=== PATIENT | female | born 1980 | race Caucasian/White ===

== ENCOUNTER 2018-04-12 09:03 | Day surgery (SDC) | payer OTHER ==
[2018-04-11 10:11] LABS: HEMATOCRIT 39.9 % (36.0-47.0); MEAN CORPUSCULAR HEMOGLOBIN 32.6 pg (27.0-33.4); MEAN CORPUSCULAR HGB CONC 35.1 g/dL (32.0-36.0); MEAN CORPUSCULAR VOLUME 93 fl (80-97); PLATELET COUNT 148 10^3/uL (150-450); RED BLOOD COUNT 4.28 10^6/uL (3.72-5.28); WHITE BLOOD COUNT 7.4 10^3/uL (4.0-10.5)
[2018-04-11 10:19] LABS: APPEARANCE,URINE SLIGHTLY-CLOUDY; BILIRUBIN,URINE NEGATIVE (NEGATIVE); COLOR,URINE YELLOW; GLUCOSE, URINE NEGATIVE (NEGATIVE); KETONES,URINE NEGATIVE (NEGATIVE); LEUKOCYTE ESTERASE,URINE TRACE (NEGATIVE); NITRITE,URINE NEGATIVE (NEGATIVE); PROTEIN,URINE NEGATIVE (NEGATIVE); URINE SPECIFIC GRAVITY 1.011; UROBILINOGEN,URINE NEGATIVE mg/dL (<2.0)
[~2018-04-12 09:03] MED LIST: ALBUTEROL SULFATE 0.083% NEB 2.5 MG/3 ML AMPUL NEB ONE; LACTATED RINGERS 1000 ML IV PRN; LIDOCAINE 0.5% INJ-PF (5 MG/ML) 50 ML SDV SUBCUT PRN
[2018-04-12] MEDS ORDERED: SCOPOLAMINE HYDROBROMIDE 1.5 MG PATCH.TD72 ONE (10:09)
[2018-04-12] MEDS ORDERED: FAMOTIDINE INJ/PF 20 MG/2 ML SDV IV ONE (10:09)
[2018-04-12] MEDS ORDERED: ALBUTEROL SULFATE 0.083% NEB 2.5 MG/3 ML AMPUL NEB ONE ×2 (10:21→12:19)
[2018-04-12] MEDS ORDERED: PROPOFOL INJ 200 MG/20 ML VIAL IV ONE (11:01)
[2018-04-12] MEDS ORDERED: FENTANYL CITRATE INJ/PF 100 MCG/2 ML AMPUL ONE (11:01)
[2018-04-12] MEDS ORDERED: MIDAZOLAM 2 MG/2 ML INJ ONE (11:01)
[2018-04-12] MEDS ORDERED: ACETAMINOPHEN 1,000 MG/100 ML RTUPB IV ONE (11:01)
[2018-04-12] MEDS ORDERED: SUGAMMADEX SODIUM 200 MG/2 ML SDV IV ONE (11:34)
[2018-04-12] MEDS ORDERED: MEPERIDINE HCL/PF INJ 25 MG/1 ML DISP.SYRIN IV PRN (11:44)
[2018-04-12] MEDS ORDERED: FENTANYL CITRATE INJ/PF 100 MCG/2 ML AMPUL IV PRN ×3 (11:44)
[2018-04-12] MEDS ORDERED: PROMETHAZINE HCL INJ 25 MG/1 ML VIAL IV PRN (11:44)
[2018-04-12] MEDS ORDERED: DIPHENHYDRAMINE HCL 50 MG/ML VIAL IV PRN (11:44)
[2018-04-12] MEDS ORDERED: OXYCODONE-ACETAMINOPHEN 5-325 MG TABLET PO PRN ×2 (11:51)
[2018-04-12] MEDS ORDERED: KETOROLAC TROMETHAMINE INJ/PF 30 MG/1 ML SDV IV PRN (11:51)
[2018-04-12] MEDS ORDERED: IBUPROFEN 800 MG TABLET PO PRN (11:51)
[2018-04-12] MEDS ORDERED: RINGERS SOLUTION,LACTATED 1,000 ML IV PRN (11:51)
--- NOTE | 2018-04-12 11:56 | Operative Report ---
Operative Report DATE OF SURGERY: 04/12/18 PREOPERATIVE DIAGNOSIS: Patient desires tubal ligation with fulguration and rem oval of her ParaGard POSTOPERATIVE DIAGNOSIS: Same OPERATION: Bilateral tubal ligation using Rupert cautery, removal of ParaGard SURGEON: VIDA DYSON ANESTHESIA: GA TISSUE REMOVED OR ALTERED: Fallopian tubes COMPLICATIONS: None ESTIMATED BLOOD LOSS: None INTRAOPERATIVE FINDINGS: Normal uterus tubes and ovaries PROCEDURE: Patient was taken back to the OR and placed in supine position. General anesthesia was induced. She was placed in dorsolithotomy position using Johnson stirrups. Her perineum vagina and abdomen were prepared and draped in sterile fashion. She had voided prior to the procedure and did not need catheterization. The ParaGard was removed intact and a sponge stick was placed in the vagina for manipulation of the uterus. An incision was made at the umbilicus natural umbilical defect was identified and dilated with Buffy clamp allowing a 1 cm port to be placed. Using the operative scope each tube was identified followed out to its fimbriated end and then cauterized at its mid isthmic portion moving back toward the uterine cornu with 5 successive bites. The procedure went well there were no complications. At the end of the case his gas was allowed to escape from the abdomen. The scope and port were removed in unison. The fascia at the umbilicus was closed with a 2-0 Vicryl stitch and skin closed with a subcuticular 4-0 undyed Vicryl stitch. She is extubated in the OR taken recovery room stable condition.
--- NOTE | 2018-04-12 11:59 | Discharge Summary ---
Discharge Summary (SDC) - Discharge Final Diagnosis: Admission for tubal ligation as well as ParaGard removal Date of Surgery: 04/12/18 Discharge Date: 04/12/18 Condition: Good Treatment or Instructions: Home to rest follow-up in 2 weeks Prescriptions: Oxycodone HCl/Acetaminophen [Percocet 5-325 mg Tablet] 1 tab PO Q4HP PRN 7 Days #28 tablet PRN Reason: Ibuprofen [Motrin 800 mg Tablet] 800 mg PO BIDP PRN #20 tablet PRN Reason: Referrals: JENNIFER ZARATE MD [Primary Care Provider] - Discharge Diet: Regular Discharge Activity: Activity As Tolerated, Pelvic Rest
[2018-04-12] MEDS: FENTANYL CITRATE INJ/PF 100 MCG/2 ML AMPUL ONE ×2 (12:08→12:15)
[2018-04-12] MEDS ORDERED: DEXAMETHASONE SOD PHOSPHATE INJ 4 MG/1 ML VIAL ONE (12:09)
[2018-04-12] MEDS ORDERED: ONDANSETRON HCL INJ/PF 4 MG/2 ML SDV ONE (12:09)
[2018-04-12] MEDS ORDERED: SUCCINYLCHOLINE CHLORIDE INJ 200 MG/10 ML VIAL ONE (12:09)
[2018-04-12] MEDS ORDERED: LIDOCAINE 2% INJ-PF (20 MG/ML) 2 ML AMPUL ONE (12:09)
[2018-04-12] MEDS ORDERED: ROCURONIUM BROMIDE INJ 50 MG/5 ML VIAL IV ONE (12:09)
[2018-04-12 13:57] VITALS: BP 103/65
== END 2018-04-12 13:58 | disposition home or self-care (01) ==
LOC: OROUT 09:03
PROVIDERS: ATTEND Obstetrics & Gynecology
DX: Z30.2 Encounter for sterilization (principal); E03.9 Hypothyroidism, unspecified; F17.210 Nicotine dependence, cigarettes, uncomplicated; Z79.899 Other long term (current) drug therapy; Z88.5 Allergy status to narcotic agent; Z30.432 Encounter for removal of intrauterine contraceptive device
CPT/HCPCS: 36415; 85027; 81005; 81025; 58670; 58301; J2250; J3490 ×3; J1100; J3010; J0330; J2405; J2704; S0028; J0131; 851